=== PATIENT | male | born 1995 | race African-American/Black ===

== ENCOUNTER 2018-10-09 16:11 | Emergency (ER) | payer SELFPAY ==
[2018-10-09 16:22] VITALS: BP 120/80
[2018-10-09] MEDS ORDERED: LIDOCAINE 1% INJ-PF (10 MG/ML) 30 ML SDV INJ ONE (17:58)
[2018-10-09] MEDS ORDERED: DIPH/PERTUSS(ACELL)/TETANUS VAC/PF 0.5 ML SYR (>=10YO) IM ONE (18:00)
--- NOTE | 2018-10-09 18:05 | ER Document Report ---
ED Hand/Wrist Injury - General Chief Complaint: Laceration Stated Complaint: HAND LACERATION Time Seen by Provider: 10/09/18 17:42 [facility] - Follow up as needed Mode of Arrival: Ambulatory Information source: Patient Notes: 23-year-old male presented to ED for laceration to the back of the left hand. He states he was trying to repair his knife because it would not open it was jammed and he cut himself with a knife he states that there was a new knife. He is alert oriented respirations regular and unlabored speaking in full sentences walks with a even steady gait. Bleeding is controlled he did have a dressing on when I first examined him. TRAVEL OUTSIDE OF THE [place] IN LAST 30 DAYS: No - HPI Injury to: Hand Onset: This afternoon Where: Home, Indoors Timing: Still present Quality of pain: Sharp Severity: Moderate Pain Level: 3 Context: Laceration - Related Data Allergies/Adverse Reactions: No Known Allergies Allergy (Verified 10/09/18 16:15) Past Medical History - General Information source: Patient - Social History Smoking Status: Current Every Day Smoker Cigarette use (# per day): Yes - Pack per day Smoking Education Provided: Yes Frequency of alcohol use: Social Drug Abuse: Marijuana Occupation: Woman Family History: Arthritis, CAD, CVA, DM, Hyperlipidemia, Hypertension, Thyroid Disfunction Patient has suicidal ideation: No Patient has homicidal ideation: No - Past Medical History Cardiac Medical History: Reports: None Pulmonary Medical History: Reports: Hx Asthma EENT Medical History: Reports: None Neurological Medical History: Reports: None Endocrine Medical History: Reports: None Renal/ Medical History: Reports: None Malignancy Medical History: Reports None GI Medical History: Reports: None Musculoskeletal Medical History: Reports Hx Musculoskeletal Deformity, Reports Hx Musculoskeletal Trauma Skin Medical History: Reports None Psychiatric Medical History: Reports: Hx Attention Deficit Hyperactivity Disorder - odd, Hx Bipolar Disorder Traumatic Medical History: Reports: Hx Fractures, Hx Traumatic Brain Injury Infectious Medical History: Reports: None Past Surgical History: Reports: Hx Orthopedic Surgery - bilateral knee due to being impaled on a fence - Immunizations Immunizations up to date: Yes Hx Diphtheria, Pertussis, Tetanus Vaccination: Yes - 10/09/18 Review of Systems - Review of Systems Constitutional: No symptoms reported EENT: No symptoms reported Cardiovascular: No symptoms reported Respiratory: No symptoms reported Gastrointestinal: No symptoms reported Genitourinary: No symptoms reported Male Genitourinary: No symptoms reported Musculoskeletal: No symptoms reported Skin: Other - laceraiton to left hand Hematologic/Lymphatic: No symptoms reported Neurological/Psychological: No symptoms reported Physical Exam - Vital signs Vitals: Temp Pulse Resp BP Pulse Ox 98.9 F 58 L 17 120/80 98 10/09/18 16:21 10/09/18 16:21 10/09/18 16:21 10/09/18 16:21 10/09/18 16:21 Interpretation: Normal - General General appearance: Appears well, Alert - HEENT Head: Normocephalic, Atraumatic Eyes: Normal Pupils: PERRL - Respiratory Respiratory status: No respiratory distress Chest status: Nontender Breath sounds: Normal Chest palpation: Normal - Cardiovascular Rhythm: Regular Heart sounds: Normal auscultation Murmur: No - Abdominal Inspection: Normal Distension: No distension Bowel sounds: Normal Tenderness: Nontender Organomegaly: No organomegaly - Back Back: Normal, Nontender - Extremities General upper extremity: Normal color, Normal ROM, Normal temperature General lower extremity: Normal inspection, Nontender, Normal color, Normal ROM, Normal temperature, Normal weight bearing. No: Elo's sign Hand: Tender, Laceration - 1 cm posterior just proximal to 2nd mip joint - Neurological Neuro grossly intact: Yes Cognition: Normal Orientation: AAOx4 [place] Coma Scale Eye Opening: Spontaneous [place] Coma Scale Verbal: Oriented [place] Coma Scale Motor: Obeys Commands [place] Coma Scale Total: 15 Speech: Normal Motor strength normal: LUE, RUE, LLE, RLE Sensory: Normal - Psychological Associated symptoms: Normal affect, Normal mood - Skin Skin Temperature: Warm Skin Moisture: Dry Skin Color: Normal Skin irregularity: Laceration - 1 cm back to the hand just below the second finger Location of irregularity: Extremities Course - Vital Signs Vital signs: Temp Pulse Resp BP Pulse Ox 98.9 F 58 L 17 120/80 98 10/09/18 16:21 10/09/18 16:21 10/09/18 16:21 10/09/18 16:21 10/09/18 16:21 Procedures - Laceration/Wound Repair Left Posterior Hand Time completed: 18:39 Wound length (cm): 1 Wound's Depth, Shape: Linear Laceration pre-procedure: Sterile PPE donned, Sterile drapes applied, Shur-Clens applied Anesthetic type: 1% Lidocaine Volume Anesthetic (mLs): 2 Wound explored: Clean Irrigated w/ Saline (mLs): 50 Wound Debrided: Minimal Wound Repaired With: Sutures Suture Size/Type: 4:0, Ethilon Number of Sutures: 3 Layer Closure?: No Post-procedure wound care: Sterile dressing applied Post-procedure NV exam normal: Yes Complications: No Discharge - Discharge Clinical Impression: laceration posterior left hand Condition: Stable Disposition: HOME, SELF-CARE Additional Instructions: Hand Laceration A laceration on the hand can present special problems. It may be difficult to keep the wound dry. Motion of the fingers can disturb the healing edges. Your work may involve exposure to damaging chemicals or water. Keep the wound clean and dry. If you can't keep the cut dry, undisturbed, and free of chemical exposure, please discuss this with the doctor. If any water or chemical gets onto the dressing, remove it, blot the wound dry, then apply a fresh bandage. Dressings should be changed every day. If you feel the stitches pulling as you move the hand, a splint or other form of protection is needed. If any signs of infection occur (swelling, redness, increasing tenderness, red streaks, tender lumps in the armpit, or fever), see the doctor immediately. SOAP CLEANSING: Gently wash the wound daily using a mild soap (like Ivory, Phisoderm, Neutrogena). Use warm water, rubbing gently until all debris, ooze, and crusting have been washed from the wound. Allow to dry briefly (about 10 minutes) after cleaning. Repeat this cleansing at least three times a day for the first two days and then once or twice a day. ANTIBIOTIC OINTMENT PROTECTION: Your wounds are such that dressing them is not practical or optional. After cleansing, you should apply a thin coating of antibiotic ointment ( Bacitracin, not Neosporin) to the wounds at least three times daily. This lessens infection risk, and may decrease the amount of scarring. Use a q-tip or dull butter knife, not your finger, to apply this ointment. Any debris or ooze which builds up in the ointment should be gently rubbed off with a sterile gauze pad. Harder crusting may need to be gently scrubbed off with a clean wash cloth with soap and warm water, perhaps applying a warm, wet wash cloth to the wound for ten minutes first. Development of redness, severe itching, or blistering may mean allergy to the ointment. See the doctor. TETANUS IMMUNIZATION GIVEN: You have been given an immunization against tetanus. Please record this in your records. In general, a booster is needed only once every 10 years. The tetanus shot protects against tetanus or "lockjaw," which is a complication of certain wound infections (the tetanus shot cannot protect against the actual infection). The immunization site may become warm and red due to local reaction. If this occurs, apply warm compresses and take aspirin or ibuprofen to reduce inflammation and discomfort. Return for evaluation if the reaction becomes severe. FOLLOW-UP CARE: Please return in __5___ days for an infection check and dressing change. Your sutures should be removed in __9___ days. To facilitate a timely removal of your sutures, you may return to the Emergency Department at [facility]. You do not need to call for an appointment, but the best time to come in for suture removal is early in the morning. If you have been referred to another physician for follow-up care, call that physicians office for an appointment as you were instructed. If you experience a significant change in your laceration, or if you are concerned there may be an infection (swelling, redness, drainage, increasing tenderness, red streaks, tender lumps in the armpit or groin above the laceration, or fever), return to the Emergency Department immediately re-evaluation. Forms: Smoking Cessation Education [facility] - Follow up as needed
== END 2018-10-09 18:52 | disposition home or self-care (01) ==
LOC: ER 16:11
PROC: 0HQGXZZ Repair Left Hand Skin, External Approach (ICD-10-PCS; principal; 2018-10-09)
DX: S61.412A Laceration without foreign body of left hand, initial encounter (principal); W26.0XXA Contact with knife, initial encounter; F17.210 Nicotine dependence, cigarettes, uncomplicated
CPT/HCPCS: 99282; 90471; 90715; 12001; J3490

== ENCOUNTER 2018-10-16 13:27 | Emergency (ER) | payer SELFPAY ==
[2018-10-16 13:52] VITALS: BP 150/69
--- NOTE | 2018-10-16 17:10 | ER Document Report ---
ED Wound - General Chief Complaint: Skin Problem Stated Complaint: LEFT HAND INJURY Time Seen by Provider: 10/16/18 16:58 Mode of Arrival: Ambulatory Information source: Patient Notes: Patient is a 21-year-old male returns to the ER today have sutures removed off his left second dorsal finger area. Patient cut it approximately 9 days ago. He is here for the removal states it is been doing well. TRAVEL OUTSIDE OF THE [place] IN LAST 30 DAYS: No - HPI Patient complains to provider of: Laceration - Is Occurred: Other - 9 days ago Onset/Duration: Better Quality of pain: No pain Severity: None Pain Level: Denies Skin Temperature: Warm Skin Color: Normal, [place] Capillary refill: < 3 seconds Sensations intact: Yes Distal pulses present: Yes Associated Symptoms: None - Related Data Allergies/Adverse Reactions: No Known Allergies Allergy (Verified 10/09/18 16:15) Past Medical History - General Information source: Patient, [facility] Records - Social History Smoking Status: Current Every Day Smoker Cigarette use (# per day): Yes - Half-pack Chew tobacco use (# tins/day): No Smoking Education Provided: No Frequency of alcohol use: None Drug Abuse: None Lives with: Family Family History: Reviewed & Not Pertinent, Arthritis, CAD, CVA, DM, Hyperlipidemia, Hypertension, Thyroid Disfunction Patient has suicidal ideation: No Patient has homicidal ideation: No Pulmonary Medical History: Reports: Hx Asthma Renal/ Medical History: Denies: Hx Peritoneal Dialysis Musculoskeletal Medical History: Reports Hx Musculoskeletal Deformity, Reports Hx Musculoskeletal Trauma Psychiatric Medical History: Reports: Hx Attention Deficit Hyperactivity Disorder - odd, Hx Bipolar Disorder Traumatic Medical History: Reports: Hx Fractures, Hx Traumatic Brain Injury Past Surgical History: Reports: Hx Orthopedic Surgery - bilateral knee due to being impaled on a fence - Immunizations Immunizations up to date: Yes Hx Diphtheria, Pertussis, Tetanus Vaccination: Yes - 10/09/18 Review of Systems - Review of Systems Constitutional: No symptoms reported EENT: No symptoms reported Cardiovascular: No symptoms reported Respiratory: No symptoms reported Gastrointestinal: No symptoms reported Genitourinary: No symptoms reported Male Genitourinary: No symptoms reported Musculoskeletal: No symptoms reported Skin: See HPI, Other - Wound check Hematologic/Lymphatic: No symptoms reported Neurological/Psychological: No symptoms reported -: Yes All other systems reviewed and negative Physical Exam - Vital signs Vitals: Temp Pulse Resp BP Pulse Ox 98.1 F 73 18 150/69 H 99 10/16/18 13:50 10/16/18 13:50 10/16/18 13:50 10/16/18 13:50 10/16/18 13:50 Interpretation: Hypertensive - Notes Notes: PHYSICAL EXAMINATION: GENERAL: Well-appearing, well-nourished and in no acute distress. LUNGS: Breath sounds clear to auscultation bilaterally and equal. No wheezes rales or rhonchi. HEART: Regular rate and rhythm without murmurs Musculoskeletal: Examination patient's left hand shows he has well-healed area at the base of his left index finger dorsal side right at the knuckle area slightly lateral area where the wound was has healed well there is no sign of infection there is no warmth there is no swelling to the area currently the 3 sutures are still intact and looked good there is good approximation and good healing. I NEUROLOGICAL Normal speech, normal gait. Normal sensory, motor exams PSYCH: Normal mood, normal affect. SKIN: Warm, Dry, normal Patient Course - Re-evaluation Re-evalutation: 10/16/18 17:27 Sutures were removed without any complications area still looks good no dehiscence is noted at this time. Patient be discharged home without any antibiotics and will follow-up only as needed. - Vital Signs Vital signs: Temp Pulse Resp BP Pulse Ox 98.1 F 73 18 150/69 H 99 10/16/18 13:50 10/16/18 13:50 10/16/18 13:50 10/16/18 13:50 10/16/18 13:50 Discharge - Discharge Clinical Impression: Visit for suture removal Condition: Stable Disposition: HOME, SELF-CARE Instructions: Suture Removal Additional Instructions: Home keep the area clean and dry for 24 hours. Activity as tolerated and normal activity after that. You may want to keep a Band-Aid on it for the next 24 hours and return to ER if you have any concerns or problems. Forms: Smoking Cessation Education, Return to Work, Elevated Blood Pressure
== END 2018-10-16 17:53 | disposition home or self-care (01) ==
LOC: ER 13:27
DX: S61.412D Laceration without foreign body of left hand, subsequent encounter (principal); X58.XXXD Exposure to other specified factors, subsequent encounter; F17.210 Nicotine dependence, cigarettes, uncomplicated; J45.909 Unspecified asthma, uncomplicated
CPT/HCPCS: 99283